=== PATIENT | male | born 1970 | race African-American/Black ===

== ENCOUNTER 2020-02-01 18:44 | Emergency (ER) | payer OTHER ==
[~2020-02-01] VITALS: Ht 182.9 cm; Wt 100.0 kg
[2020-02-01] MEDS ORDERED: ALBUTEROL (0.083%) 2.5MG/3ML NEB HHN STA (19:13)
[2020-02-01] MEDS ORDERED: IPRATROPIUM BROMIDE (0.02%) 0.5MG/2.5ML NEB HHN STA (19:13)
[2020-02-01] MEDS ORDERED: ASPIRIN 81MG TABLET PO ONE (19:15)
[2020-02-01 20:03] LABS: BASOPHILS % 0.7 % (0.0-2.0); EOSINOPHILS % 5.7 % (0.0-5.0); HEMATOCRIT. 40.5 % (42.0-52.0); HEMOGLOBIN. 13.8 g/dL (14.0-18.0); LYMPHOCYTES % 30.7 % (20.0-50.0); MEAN CORPUSCULAR HEMOGLOBIN 31.4 pg (28.0-32.0); MEAN CORPUSCULAR VOLUME 92.2 fL (80.0-94.0); MEAN PLATELET VOLUME 7.2 fl (7.4-10.4); MONOCYTES % 9.1 % (2.0-8.0); NEUTROPHILS % 53.8 % (40.0-76.0); PLATELET 209 x1000/uL (130-400); RED CELL DISTRIBUTION WIDTH 14.6 % (11.6-14.6)
[2020-02-01 20:16] LABS: CHLORIDE 108 mEq/L (98-107)
[2020-02-01 20:20] LABS: ETHANOL BLOOD < 10 mg/dL
[2020-02-01] MEDS ORDERED: POTASSIUM CHLORIDE 20MEQ TABLET SR PO ONE (20:30)
[2020-02-01 22:58] VITALS: BP 132/87
[2020-02-01 23:44] LABS: CLARITY URINE CLEAR (CLEAR); COLOR URINE YELLOW (YELLOW); KETONES URINE 2+ (NEGATIVE); LEUKOCYTE ESTERASE URINE TRACE (NEGATIVE); NITRITE URINE NEGATIVE (NEGATIVE); OCCULT BLOOD URINE 1+ (NEGATIVE); PROTEIN URINE TRACE (NEGATIVE); SPECIFIC GRAVITY URINE 1.026 (1.005-1.030)
[2020-02-02 00:06] LABS: CANNABINOID URINE SCREEN NEGATIVE (NEGATIVE)
[2020-02-02 00:07] LABS: *AMPHETAMINES SCREEN URINE PRESUMTIVE POSITIVE (NEGATIVE); *BARBITURATES SCREEN URINE NEGATIVE (NEGATIVE); *BENZODIAZEPINES SCREEN URINE NEGATIVE (NEGATIVE); *COCAINE SCREEN URINE NEGATIVE (NEGATIVE); METHADONE URINE SCREEN NEGATIVE (NEGATIVE); PHENCYCLIDINE URINE SCREEN NEGATIVE (NEGATIVE)
[2020-02-03 08:33] LABS: OPIATES URINE SCREEN NEGATIVE (NEGATIVE)
== END 2020-02-01 23:55 | disposition left against medical advice (07) ==
LOC: ER 18:44
DX: R07.89 Other chest pain (principal); R05 Cough; R53.1 Weakness; J45.909 Unspecified asthma, uncomplicated; F15.20 Other stimulant dependence, uncomplicated
CPT/HCPCS: 36415; 71045; 80053; 80305; 80320; 81003; 83690; 83880; 84484; 85025; 87804; 93005; 94640; 99285; Z7610; G0480